=== PATIENT | male | born 1970 | race Hispanic/Latino ===

== ENCOUNTER 2022-09-18 09:02 | Outpatient (CLI) | payer BC | END 2022-09-18 09:03 | disposition home or self-care (01) | LOC: RAD 09:02 | PROVIDERS: ATTEND Family Medicine | DX: R63.4 Abnormal weight loss (principal); F17.200 Nicotine dependence, unspecified, uncomplicated; I27.20 Pulmonary hypertension, unspecified; J84.10 Pulmonary fibrosis, unspecified | CPT/HCPCS: 71046 ==

== ENCOUNTER 2023-01-21 08:36 | Outpatient (CLI) | payer BC | END 2023-01-21 08:37 | disposition home or self-care (01) | LOC: RAD 08:36 | PROVIDERS: ATTEND Internal Medicine Critical Care Medicine | DX: R06.00 Dyspnea, unspecified (principal); J84.10 Pulmonary fibrosis, unspecified | CPT/HCPCS: 71046 ==